=== PATIENT | male | born 1960 | race Caucasian/White ===

== ENCOUNTER → 2023-09-07 | Day surgery (SDC) | payer OTHER ==
[2023-09-05 12:48] LABS: Potassium 4.3 mEq/L (3.5-5.1)
--- NOTE | 2023-09-06 13:39 | EKG ---
Test Date: 2023-09-05 Test Time: 12:21:34 Network Strategist: MINDI MEASUREMENT RESULTS: Intervals: Rate: 62 MS: 182 QRSD: 80 QT: 424 QTc: 430 [place]: P: 48 MS: 182 QRS: 43 T: 12 INTERPRETIVE STATEMENTS: Normal sinus rhythm Normal ECG No previous ECG available for comparison Electronically Signed On 09-06-23 13:37:04 CDT by Jeffrey Padilla
== END ==
LOC: OR 06:45
PROVIDERS: ATTEND Surgery
DX: K21.9 Gastro-esophageal reflux disease without esophagitis (principal); Z12.11 Encounter for screening for malignant neoplasm of colon; R10.13 Epigastric pain; Z53.09 Procedure and treatment not carried out because of other contraindication
CPT/HCPCS: 36415; 80048; 93005

== ENCOUNTER 2023-09-10 10:48 | Day surgery (SDC) | payer OTHER ==
[2023-09-10] MEDS ORDERED: Ringers Lactate 1,000 ML IV ONE (12:18)
[2023-09-10] MEDS ORDERED: propofoL 200 MG/20 ML VIAL IV ONE ×2 (13:23→13:24)
[2023-09-10] MEDS ORDERED: LIDOCAINE 1% MPF 5 ML VIAL ONE (13:24)
== END 2023-09-10 14:45 | disposition home or self-care (01) ==
LOC: OR 10:48
PROVIDERS: ATTEND Surgery
PROC: 0DB98ZX Excision of Duodenum, Via Natural or Artificial Opening Endoscopic, Diagnostic (ICD-10-PCS; 2023-09-10)
PROC: 0DB68ZX Excision of Stomach, Via Natural or Artificial Opening Endoscopic, Diagnostic (ICD-10-PCS; 2023-09-10)
PROC: 0DB48ZX Excision of Esophagogastric Junction, Via Natural or Artificial Opening Endoscopic, Diagnostic (ICD-10-PCS; 2023-09-10)
PROC: 0DBK8ZX Excision of Ascending Colon, Via Natural or Artificial Opening Endoscopic, Diagnostic (ICD-10-PCS; principal; 2023-09-10 13:45)
PROC: 0DBP8ZX Excision of Rectum, Via Natural or Artificial Opening Endoscopic, Diagnostic (ICD-10-PCS; 2023-09-10 13:45)
DX: Z12.11 Encounter for screening for malignant neoplasm of colon (principal); K21.9 Gastro-esophageal reflux disease without esophagitis; K57.30 Diverticulosis of large intestine without perforation or abscess without bleeding; K64.8 Other hemorrhoids; K64.4 Residual hemorrhoidal skin tags; K62.89 Other specified diseases of anus and rectum; K44.9 Diaphragmatic hernia without obstruction or gangrene; K29.50 Unspecified chronic gastritis without bleeding; K21.00 Gastro-esophageal reflux disease with esophagitis, without bleeding; D12.2 Benign neoplasm of ascending colon; K52.9 Noninfective gastroenteritis and colitis, unspecified
CPT/HCPCS: 45380; 43239; 88312; 88305; J2704; J2001; J7120